=== PATIENT | male | born 1980 | race Hispanic/Latino ===

== ENCOUNTER 2022-07-02 12:24 | Emergency (ER) | payer OTHER ==
[~2022-07-02] VITALS: Ht 177.8 cm; Wt 99.8 kg
[2022-07-02 15:33] VITALS: BP 123/78
[2022-07-02] MEDS ORDERED: BACITRACIN 1 EACH PACKET TP ONE (16:00)
[2022-07-02] MEDS ORDERED: BACI30OI6 TP (16:01)
[2022-07-02] MEDS ORDERED: AMOX1TAB16 PO (16:01)
[2022-07-02] MEDS ORDERED: TETANUS/DIPHTHERIA TOXOID [ADULT] 0.5 ML VIAL IM ONE (16:30)
== END 2022-07-02 16:28 | disposition home or self-care (01) ==
LOC: EDH 12:24
DX: S61.411A Laceration without foreign body of right hand, initial encounter (principal); I10 Essential (primary) hypertension; J45.909 Unspecified asthma, uncomplicated; Z91.040 Latex allergy status; Z98.890 Other specified postprocedural states; W45.8XXA Other foreign body or object entering through skin, initial encounter; Y93.89 Activity, other specified; Y92.59 Other trade areas as the place of occurrence of the external cause; Y99.8 Other external cause status
CPT/HCPCS: 12001; 90471; 90714